=== PATIENT | female | born 1965 | race Caucasian/White ===

== ENCOUNTER → 2023-12-08 12:08 | Outpatient (REF) | payer OTHER, SELFPAY | LOC: HWWDC 12:08 | PROVIDERS: ATTENDING PHYSICIAN Physician Assistant Medical | DX: Z12.31 Encounter for screening mammogram for malignant neoplasm of breast (principal); M81.0 Age-related osteoporosis without current pathological fracture | CPT/HCPCS: 77063; 77067; 77080 ==

== ENCOUNTER → 2024-12-24 12:45 | Outpatient (REF) | payer OTHER, SELFPAY | LOC: HWWDC 12:45 | PROVIDERS: ATTENDING PHYSICIAN Obstetrics & Gynecology Gynecology; FAMILY PHYSICIAN Physician Assistant Medical | DX: Z12.31 Encounter for screening mammogram for malignant neoplasm of breast (principal) | CPT/HCPCS: 77063; 77067 ==